=== PATIENT | female | born 1955 | race Native Hawaiian/Other Pacific Islander ===

== ENCOUNTER 2016-06-14 07:30 | Outpatient (CLI) | payer OTHER ==
[2016-06-14 08:39] LABS: PLATELET COUNT 258 K/uL (152-353)
[2016-06-14 09:32] LABS: POTASSIUM 3.6 mmol/L (3.6-5.2); SODIUM 121 mmol/L (136-145)
== END 2016-06-14 09:30 | disposition home or self-care (01) ==
LOC: LABW 07:30
PROVIDERS: Internal Medicine Cardiovascular Disease
DX: Z79.899 Other long term (current) drug therapy (principal); E78.4 Other hyperlipidemia; Z51.81 Encounter for therapeutic drug level monitoring
CPT/HCPCS: 36415; 80048; 80061; 80076; 85027

== ENCOUNTER 2016-06-22 11:15 | Outpatient (CLI) | payer OTHER | END 2016-06-22 20:02 | disposition home or self-care (01) | LOC: US 11:15 | DX: E78.4 Other hyperlipidemia (principal) ==

== ENCOUNTER 2017-04-22 11:20 | Outpatient (CLI) | payer OTHER | END 2017-04-22 19:20 | disposition home or self-care (01) | LOC: MAMMO 11:20 | DX: Z12.31 Encounter for screening mammogram for malignant neoplasm of breast (principal) ==

== ENCOUNTER 2017-08-13 08:33 | Outpatient (CLI) | payer OTHER ==
[~2017-08-13] VITALS: Ht 167.6 cm; Wt 90.7 kg
== END 2017-08-13 22:53 | disposition home or self-care (01) ==
LOC: NM 08:33
DX: R07.89 Other chest pain (principal)
CPT/HCPCS: A9500; J2785

== ENCOUNTER 2017-09-03 12:59 | Outpatient (CLI) | payer OTHER | END 2017-09-03 22:31 | disposition home or self-care (01) | LOC: US 12:59 | DX: I65.29 Occlusion and stenosis of unspecified carotid artery (principal) ==

== ENCOUNTER 2019-02-02 11:25 | Outpatient (CLI) | payer OTHER | END 2019-02-02 23:11 | disposition home or self-care (01) | LOC: US 11:25 | DX: I65.29 Occlusion and stenosis of unspecified carotid artery (principal) ==

== ENCOUNTER 2019-04-28 08:13 | Outpatient (CLI) | payer OTHER ==
[~2019-04-28] VITALS: Ht 167.6 cm; Wt 90.7 kg
== END 2019-04-28 20:05 | disposition home or self-care (01) ==
LOC: NM 08:13
DX: R07.89 Other chest pain (principal)
CPT/HCPCS: A9500; J2785

== ENCOUNTER 2019-07-15 10:30 | Outpatient (CLI) | payer OTHER | END 2019-07-15 19:21 | disposition home or self-care (01) | LOC: RAD 10:30 | DX: R06.02 Shortness of breath (principal); J44.1 Chronic obstructive pulmonary disease with (acute) exacerbation ==

== ENCOUNTER 2019-11-11 13:05 | Outpatient (CLI) | payer OTHER | END 2019-11-11 22:09 | disposition home or self-care (01) | LOC: US 13:05 | DX: E03.8 Other specified hypothyroidism (principal); R13.19 Other dysphagia ==

== ENCOUNTER 2020-04-19 13:08 | Outpatient (CLI) | payer OTHER | END 2020-04-19 20:01 | disposition home or self-care (01) | LOC: US 13:08 | PROVIDERS: ATTEND Internal Medicine Cardiovascular Disease | DX: I65.29 Occlusion and stenosis of unspecified carotid artery (principal) ==

== ENCOUNTER 2020-04-21 13:12 | Outpatient (CLI) | payer OTHER | END 2020-04-21 20:19 | disposition home or self-care (01) | LOC: LAB 13:12 | PROVIDERS: ATTEND Nurse Practitioner Family | DX: R05 Cough (principal); R09.81 Nasal congestion; R53.83 Other fatigue; Z11.59 Encounter for screening for other viral diseases | CPT/HCPCS: 87635; G2023; U0003 ==

== ENCOUNTER 2020-05-02 15:15 | Emergency (ER) | payer OTHER ==
[~2020-05-02] VITALS: Ht 167.6 cm; Wt 94.3 kg
[2020-05-02 15:42] VITALS: TEMP 97.9
[2020-05-02 19:03] VITALS: BP 162/94
== END 2020-05-02 19:04 | disposition home or self-care (01) ==
LOC: ED 15:15
DX: S16.1XXA Strain of muscle, fascia and tendon at neck level, initial encounter (principal); S29.012A Strain of muscle and tendon of back wall of thorax, initial encounter; S80.02XA Contusion of left knee, initial encounter; V49.9XXA Car occupant (driver) (passenger) injured in unspecified traffic accident, initial encounter; Y92.89 Other specified places as the place of occurrence of the external cause
CPT/HCPCS: 99283

== ENCOUNTER 2020-09-08 11:19 | Emergency (ER) | payer OTHER ==
[~2020-09-08] VITALS: Ht 167.6 cm; Wt 94.3 kg
[2020-09-08 11:21] VITALS: TEMP 97.8
[2020-09-08 12:25] LABS: PLATELET COUNT 165 K/uL (152-353)
[2020-09-08 12:38] LABS: POTASSIUM 3.1 mmol/L (3.6-5.2)
[2020-09-08 12:45] LABS: PARTIAL THROMBOPLASTIN TIME 26.9 SECONDS (24.5-33.6)
[2020-09-08 14:40] VITALS: BP 150/68
== END 2020-09-08 15:23 | disposition short-term general hospital (02) ==
LOC: ED 11:19
PROVIDERS: Emergency Medicine
DX: I21.4 Non-ST elevation (NSTEMI) myocardial infarction (principal); I50.9 Heart failure, unspecified; R06.09 Other forms of dyspnea; J44.9 Chronic obstructive pulmonary disease, unspecified; R09.02 Hypoxemia; F17.210 Nicotine dependence, cigarettes, uncomplicated; Z20.822 Contact with and (suspected) exposure to COVID-19
CPT/HCPCS: 36600; 80053; 82805; 83605; 83880; 84484; 85027; 85610; 85730; 87040; 87502; 87635; 93005; 94664; 96374; 99284; J3490; U0003

== ENCOUNTER 2021-01-17 11:32 | Outpatient (CLI) | payer OTHER | END 2021-01-17 20:36 | disposition home or self-care (01) | LOC: LAB 11:32 | PROVIDERS: ATTEND Nurse Practitioner Family | DX: R50.9 Fever, unspecified (principal); Z20.828 Contact with and (suspected) exposure to other viral communicable diseases | CPT/HCPCS: 87635; G2023; U0003 ==

== ENCOUNTER → 2022-07-19 | Outpatient (CLI) | payer OTHER | LOC: ED 08:07 | PROVIDERS: ATTEND Emergency Medicine | DX: R40.4 Transient alteration of awareness (principal) ==